=== PATIENT | female | born 1990 | race Hispanic/Latino ===

== ENCOUNTER 2020-06-11 08:48 | Outpatient (CLI) | payer OTHER ==
[2020-06-11 17:05] LABS: SARS-CoV-2 MS2 Positive; SARS-CoV-2 N Gene Negative; SARS-CoV-2 S Gene Negative; SARS-CoV-2 by NAA Not Detected (NotDetected); SARS-CoV-2 orf1ab Negative
== END 2020-06-11 08:49 | disposition home or self-care (01) ==
LOC: LABSCS 08:48
PROVIDERS: ATTEND Family Medicine
DX: Z20.828 Contact with and (suspected) exposure to other viral communicable diseases (principal)
CPT/HCPCS: 87635; U0003

== ENCOUNTER 2020-06-14 18:00 | Inpatient (IN) | payer MEDICAID, OTHER, SELFPAY ==
[2020-06-15] MEDS ORDERED: Lidocaine 1% (PF) 30 ML VIAL SC PRN (06:42)
[2020-06-15] MEDS ORDERED: Acetaminophen 500 MG TAB PO PRN (06:42)
[2020-06-15] MEDS ORDERED: Promethazine HCl 25 MG/ML VIAL IM PRN (06:42)
[2020-06-15] MEDS ORDERED: Methylergonovine 0.2 MG/ML VIAL IM PRN (06:42)
[2020-06-15] MEDS ORDERED: Carboprost 250 MCG/ML AMP IM PRN (06:42)
[2020-06-15] MEDS ORDERED: hydrALAZINE 20 MG/ML VIAL SLOW IVP PRN ×2 (06:42→14:26)
[2020-06-15] MEDS ORDERED: Misoprostol 200 MCG TAB PR PRN (06:42)
[2020-06-15] MEDS ORDERED: Ibuprofen 800 MG TAB PO PRN (06:42)
[2020-06-15] MEDS ORDERED: Ondansetron PF 4 MG/2 ML Vial IVP PRN (06:42)
[2020-06-15] MEDS ORDERED: Lactated Ringer's 1,000 ML IV SCH (06:45)
[2020-06-15] MEDS ORDERED: NS w/ Oxytocin 10 units 500 ML IV SCH (06:45)
--- NOTE | 2020-06-15 09:13 | PDOC.FPROB ---
FMR OB H&P: HPI - History of Present Illness Chief Complaint: mIOL for A2GDM History of Present Illness: Pt is a 30 yo at 39.4wga who presents for mIOL for A2GDM. She began kiara this morning at 0500. She endorses contractions every 2-3 minutes which have been increasing in intensity. Endorses increasing vaginal pressure. Denies vaginal bleeding. Endorses good movement, and she thinks she felt a small gush of fluid at 1030. She does not desire an epidural. Denies FREY, vision changes, CP, SOB, urinary symptoms or vaginal discharge. FMR OB H&P: Current - Care : 2 Para: 1 Gestational age: 39.4wga Due date: [place] 06/18/2020 Dating Criteria: 10.6 week sono - OB Labs Blood type: O RH: positive Antibody Screen: negative HIV: negative RPR: negative HepBsAg: negative Rubella: immune Gonorrhea: negative Chlamydia: negative Pap Smear: NILM on 11/12/2019 3 hour GTT: 2 hr GTT 104/198/191 A1c: 5.7% FMR OB H&P: History - Past Medical History PMH: non contributory - OB History OB History: previous delivery via in [facility] at 40 wga. No complications during . - [employer] History [employer] History: Pap NILM 11/12/2019 Menarche 14yo, monthly periods lasts 7 days LMP 09/20/2019 No hx of STDs as per patient - Surgical History Sx History: None - Social History Social History: Denies tobacco, drug, or alcohol use outside or in - Family History Family History: extensive family hx of diabetes FMR OB H&P: Medications - Current Home Medications: Medication Instructions Recorded Confirmed Type metFORMIN [Glucophage] 500 mg PO QAM-WM 06/15/20 06/15/20 History Allergies/Adverse Reactions: Allergies Allergy/AdvReac Type Severity Reaction Status Date / Time No Known Allergies Allergy Unverified 06/15/20 09:51 FMR OB H&P: ROS - Review of Systems General: denies: fever/chills Eyes: denies: vision changes, double vision Cardiovascular: denies: chest pain, palpitation, edema Respiratory: denies: cough, congestion, shortness of breath Gastrointestinal: denies: nausea, vomiting, diarrhea, constipation Genitourinary (Female): reports: vaginal pain, contractions, vaginal pressure. denies: vaginal discharge, vaginal bleeding Musculoskeletal: denies: pain, stiffness, decrease range of motion Neurologic: denies: numbness, seizures, weakness, headache Integumentary: denies: rash Breast: denies: pain/tenderness Hematologic/Lymphatic: denies: prolonged or excessive bleeding Psychological: denies: depression, anxiety FMR OB H&P: Vital Signs - Maternal Vital signs: BP 130/82 Hr 84 T 98 156/85 during cervical check - Heart Tones Baseline: 150 Variability: moderate Acceleration: present Deceleration: absent Category: category 1 [place] contractions every: 2-3min FMR OB H&P: Physical Exam - Physical Exam General: NAD, awake, alert and oriented HEENT: normocephalic and atraumatic, EOMI, conjunctiva clear Neck: supple, FROM Chest: non-tender to palpation Heart: RRR, normal S1/S2, no murmurs/rubs/gallops, pulses present, no edema General: CTAB, no respiratory distress, no wheezing Abdomen: soft, gravid, non-tender Musculoskeletal: pulses present Neurological: no clonus, no focal deficit Skin: no rash Lymphatic: no unusual bruising or bleeding Psychiatric: intact recent and remote memory, good judgement and insight, normal mood and affect - Pelvic Exam Vulva: normal hair distribution, appropriate jamir stage, no blood SVE: 6.5/100/-1 Membranes: intact Presentation: cephalic FMR OB H&P: A/P Disposition: Pt is a 30yo at 39.4 wga here for mIOL for A2GDM 1. Active Labor -ctx every 2-3 min as per toco -cervical check at 1030 6.5/100/-2 -bedside sono showed cephalic presentation -patient denied epidural -will continue to monitor patient and strip -cervical checks q2H 2. A2GDM -500mg Metformin qAM, 1000mg qPM -71 glucose bedside ACCU check -ACCU checks q4H Anticipate . Discussion: Date/Time: 06/15/20 0911 This H&P was discussed with Dr. Zamorano and Dr. Rodas who agree with the above documentation and plan.
[2020-06-15 09:45] LABS: Hemoglobin 14.3 g/dL (12.0-16.0); Mean Corpuscular HGB CONC 33.3 g/dL (32.0-36.0); Mean Corpuscular Hemoglobin 26.6 pg (27.0-31.0); Mean Corpuscular Volume 79.9 fL (78.0-98.0); Mean Platelet Volume 8.9 fL (7.4-10.4); Platelet Count 216 thou/uL (130-400); RBC Distribution Width 14.9 % (11.5-14.5); Red Blood Cell (RBC) Count 5.37 mill/uL (4.20-5.40); White Blood Cell (WBC) Count 9.8 thou/uL (4.8-10.8)
[2020-06-15 09:54] VITALS: BMI 35.6
[2020-06-15 10:21] LABS: Syphilis Antibody Nonreactive (Nonreactive); Syphilis Antibody Index 0.04 S/CO (<1.00 Non-Reactive)
[2020-06-15 10:22] LABS: HBSAg Index 0.19 S/CO (0-0.99); Hep B Surf Ag Non-Reactive S/CO (NonReactive)
[2020-06-15] MEDS ORDERED: Lidocaine 1% (PF) 30 ML VIAL ONE (10:50)
[2020-06-15] MEDS ORDERED: NS / Oxytocin 40 units/1000ml 1,000 ML ONE (10:51)
[2020-06-15] MEDS ORDERED: Butorphanol Tartrate 1 MG/ML VIAL SLOW IVP PRN (11:00)
[2020-06-15] MEDS ORDERED: Fentanyl 4 mcg/Bup 0.1% Cadd 0 ML ONE (11:13)
[2020-06-15] MEDS: NS / Oxytocin 40 units/1000ml 1,000 ML IV PRN ×2 (11:48→13:25)
[2020-06-15 12:13] LABS: Actual Bicarbonate (HCO3a) 21.9 mEq/L (22-28); Base Excess (BEa) -4.2 mEq/L (-2.0 to +3.0)
[2020-06-15] MEDS: Misoprostol 100 MCG TAB VAG SCH ×4 (14:24→22:51)
[2020-06-15] MEDS ORDERED: NS / Oxytocin 40 units/1000ml 1,000 ML IV SCH (14:26)
[2020-06-15] MEDS ORDERED: Milk Of Magnesia 30 ML UDCUP PO PRN (14:26)
[2020-06-15] MEDS ORDERED: Bisacodyl 10 MG SUPP PR PRN (14:26)
[2020-06-15] MEDS ORDERED: Misoprostol 200 MCG TAB VAG SCH (14:26)
[2020-06-15] MEDS: Ibuprofen 800 MG TAB PO SCH ×2 (15:55→20:54)
[2020-06-15] MEDS: Acetaminophen/Codeine 30-300mg Tablet PO PRN (15:55)
[2020-06-15] MEDS: Ferrous Sulfate 325 MG TAB PO SCH (19:29)
[2020-06-15] MEDS: Docusate Calcium (SURFAK) 240 MG CAP PO SCH (20:53)
[2020-06-16] MEDS: Acetaminophen/Codeine 30-300mg Tablet PO PRN (00:38)
[2020-06-16] MEDS: Ibuprofen 800 MG TAB PO SCH ×2 (05:37→14:46)
[2020-06-16 07:07] LABS: Hemoglobin 9.5 g/dL (12.0-16.0); Mean Corpuscular HGB CONC 32.8 g/dL (32.0-36.0); Mean Corpuscular Hemoglobin 26.5 pg (27.0-31.0); Mean Corpuscular Volume 80.8 fL (78.0-98.0); Mean Platelet Volume 8.2 fL (7.4-10.4); Platelet Count 203 thou/uL (130-400); RBC Distribution Width 14.8 % (11.5-14.5); Red Blood Cell (RBC) Count 3.58 mill/uL (4.20-5.40); White Blood Cell (WBC) Count 9.7 thou/uL (4.8-10.8)
[2020-06-16] MEDS: Docusate Calcium (SURFAK) 240 MG CAP PO SCH (08:11)
[2020-06-16] MEDS: Ferrous Sulfate 325 MG TAB PO SCH (08:11)
--- NOTE | 2020-06-16 08:14 | PDOC.PP ---
Post Progress Note Post Day #: 1 Subjective: Patient is doing well today. Minimal vaginal bleeding. Pain well controlled, just mild abdominal cramps. Ambulating without difficulty, no urinary symptoms, no BM yet but passing gas. Is bottle feeding baby. PO intake tolerated: yes Flatus: yes Ambulation: yes Vital Signs (12 hours) Temp Pulse Resp BP 06/16/20 05:40 98.2 F 79 16 108/70 06/16/20 00:00 97.8 F 75 16 117/69 Weight Weight 88.451 kg - Physical Examination General: NAD Cardiovascular: no m/r/g, RRR Respiratory: clear to auscultation bilaterally, non-labored breathing Abdominal: + bowel sounds, no distention, appropriately TTP Skin: no rash Neurological: no gross focal deficits Psychiatric: A&Ox3, normal affect Result Diagrams: 06/16/20 06:52 Additional Labs: Post Labs Blood Type O POSITIVE 06/15/20 10:07 Hep Bs Antigen Non-Reactive S/CO (NonReactive) 06/15/20 09:07 - Assessment/Plan Pt is a 30yo who delivered at 39.4 wga 1. VAVD -PP Day 1 -QBL 831mL, received 1g cytotec rectally -had a first degree perineal tear and rik labial tear. Pain well controlled -normal lochia -Desires Nexplanon for PP contraception -continue routine post care 2. A2GDM -d/c Metformin -Follow up 6 weeks PP for 2hr GTT -ACCU checks Follow up with [facility] 2-3 weeks post .
[2020-06-16] MEDS: Misoprostol 100 MCG TAB VAG SCH ×3 (08:19→15:19)
[2020-06-16] MEDS ORDERED: Prenatal Vitamin 1 TAB PO SCH (09:00)
[2020-06-16 12:06] VITALS: BP 100/52; TEMP 99
--- NOTE | 2020-06-16 14:02 | DN ---
DATE OF PROCEDURE: 06/15/2020 DELIVERING PHYSICIANS: 1. Latoya Marques MD, PGY-1. 2. Stacey Xiong MD, PGY-2. ATTENDING: Felix Rodas MD PROCEDURE: Vacuum-assisted vaginal delivery. ANESTHESIA: Local lidocaine for repair. QUANTITATIVE BLOOD LOSS: 881 mL. PREOPERATIVE DIAGNOSES: 1. Term intrauterine in labor. 2. History of A2 gestational diabetes on Metformin. POSTOPERATIVE DIAGNOSES: 1. Term intrauterine , delivered. 2. History of A2 gestational diabetes on Metformin. INDICATIONS: A 30-year-old G2, P1-0-0-1, female, who presents in active labor; cervical check was found to be 6.5, 100, -1. DELIVERY NOTE: This is a 30-year-old G2, P1-0-0-1, female at 39.4 weeks, who delivered a viable male at 11:47 following an uneventful antepartum course. A vigorous male was delivered over an intact perineum in the OA position with the help of a vacuum. Anterior shoulder and then remainder of the body delivered. No nuchal cord. The head was held down and mouth and nares were bulb suctioned. Cord clamped after delayed cord clamping and cut and cord blood collected and sent for ABG, placenta delivered intact in [place] presentation with a three-vessel cord noted. Fundal massage was performed. The fundus remained boggy, so a manual fundal massage was performed and cytotec was given 1g rectally and fundus was then firm and bleeding decreased. The cervix and vagina were inspected and a laceration was noted on patient's right labia and a first-degree perineal laceration was also noted. Both were repaired with 3-0 Vicryl in the usual fashion with good approximation and hemostasis noted after local anesthetic of lidocaine was injected at site. went to nursery in good condition for routine care. Apgars were 7 and 9 at one and five minutes respectively. The patient tolerated delivery well and went to after routine recovery/ care. Job ID: [id number] [facility]
--- NOTE | 2020-06-18 07:28 | PQF ---
CLINICAL DOCUMENTATION CLARIFICATION FORM: Dear : Felix Rodas Date / Time: 06/18/2020 Please exercise your independent, professional judgment in responding to the clarification form. Clinical indicators are provided on the bottom of this form for your review Please check appropriate box(es): [ ] Acute posthemorrhagic anemia [ ] Insignificant lab value [ ] Unable to determine In addition, please specify: Present on Admission (POA): [ ] Yes [ ] No [ ] Unable to determine To be completed by CDI/Coding staff for physician review: Present Clinical Indicators - Signs / Symptoms / Labs Results and Location in Medical Record [ x ] Hemoglobin/hematocrit is 14.3/42.9 on 06/15 and 9.5/28.9 on 06/16 Laboratory [ x ] Quantitative blood loss: 881 mL Labor and deliver note 06/15 by Felix Rodas MD [ x ] First degree perineal and labial laceration Labor and deliver note 06/15 by Felix Rodas MD Present Risk Factors Results and Location in Medical Record [ x ] Vacuum-assisted vaginal delivery Labor and deliver note 06/15 by Felix Rodas MD [ x ] First degree perineal and labial laceration, repaired Labor and deliver note 06/15 by Felix Rodas MD Present Treatments Results and Location in Medical Record [ x ] Hemabate 250 mcg Medications [ x ] IV fluids 06/15-06/16 Medications CDS/[employer] Signature: [id number] Phone #: Date/ Time: 06/18/2020 This is a permanent part of the Medical Record [facility]
== END 2020-06-16 17:05 | disposition home or self-care (01) | DRG 807 ==
LOC: L&D 06-15 08:29 → 3SW 06-15 15:46
PROVIDERS: ADMIT Family Medicine; ATTEND Family Medicine
PROC: 10D07Z6 Extraction of Products of Conception, Vacuum, Via Natural or Artificial Opening (ICD-10-PCS; principal; 2020-06-15)
PROC: 0HQ9XZZ Repair Perineum Skin, External Approach (ICD-10-PCS; 2020-06-15)
PROC: 0UQMXZZ Repair Vulva, External Approach (ICD-10-PCS; 2020-06-15)
PROC: 3E0P7VZ Introduction of Hormone into Female Reproductive, Via Natural or Artificial Opening (ICD-10-PCS; 2020-06-15)
DX: O24.425 Gestational diabetes mellitus in childbirth, controlled by oral hypoglycemic drugs (principal); Z37.0 Single live birth; Z3A.39 39 weeks gestation of pregnancy; O70.0 First degree perineal laceration during delivery
CPT/HCPCS: 36415; 36416; 82805; 85027; 86780; 86850; 86900; 86901; 87340; J2001